=== PATIENT | female | born 2000 | race African-American/Black ===

== ENCOUNTER 2021-10-11 17:06 | Outpatient (CLI) | payer OTHER ==
[~2021-10-11 17:06] MED LIST: IBUPROFEN600 MG PO
== END 2021-10-11 19:20 | disposition home or self-care (01) ==
LOC: GENOP 17:06
DX: O99.891 Other specified diseases and conditions complicating pregnancy (principal); R25.2 Cramp and spasm; Z3A.25 25 weeks gestation of pregnancy
CPT/HCPCS: 59025; 81001; 96372; J0696

== ENCOUNTER 2022-01-21 16:30 | Inpatient (IN) | payer OTHER ==
[~2022-01-21] VITALS: Ht 167.6 cm; Wt 86.2 kg
[2022-01-21] MEDS ORDERED: PEPCID20 MG PO (17:31)
[2022-01-21 18:11] LABS: HEMOGLOBIN 10.1 gm/dl (12.3-15.3); RED BLOOD COUNT 4.39 M/UL (4.00-5.10); WHITE BLOOD COUNT 8.6 K/UL (4.5-11.0)
[2022-01-23 03:01] LABS: HEMOGLOBIN 9.4 gm/dl (12.3-15.3)
[2022-01-24] MEDS ORDERED: IBUPROFEN600 MG PO (08:39)
[2022-01-24] MEDS ORDERED: HYDROCODON-ACE1 EAC4 PO (08:39)
[2022-01-24] MEDS ORDERED: DOCUSATE SODIU100 MG PO (08:39)
== END 2022-01-24 14:15 | disposition home or self-care (01) | DRG 807 ==
LOC: GENOP 16:30 → OB 17:05
PROVIDERS: Obstetrics & Gynecology; ADMIT Obstetrics & Gynecology
PROC: 10E0XZZ Delivery of Products of Conception, External Approach (ICD-10-PCS; principal; 2022-01-22)
PROC: 10907ZC Drainage of Amniotic Fluid, Therapeutic from Products of Conception, Via Natural or Artificial Opening (ICD-10-PCS; 2022-01-22)
PROC: 3E033VJ Introduction of Other Hormone into Peripheral Vein, Percutaneous Approach (ICD-10-PCS; 2022-01-22)
PROC: 0HQ9XZZ Repair Perineum Skin, External Approach (ICD-10-PCS; 2022-01-22)
PROC: 4A1H7CZ Monitoring of Products of Conception, Cardiac Rate, Via Natural or Artificial Opening (ICD-10-PCS; 2022-01-22)
PROC: 10H073Z Insertion of Monitoring Electrode into Products of Conception, Via Natural or Artificial Opening (ICD-10-PCS; 2022-01-22)
PROC: 0UH97HZ Insertion of Contraceptive Device into Uterus, Via Natural or Artificial Opening (ICD-10-PCS; 2022-01-22)
DX: O70.0 First degree perineal laceration during delivery (principal); Z37.0 Single live birth; Z3A.39 39 weeks gestation of pregnancy; Z20.822 Contact with and (suspected) exposure to COVID-19; Z28.310 Unvaccinated for COVID-19
CPT/HCPCS: 81001; 82800; 85014; 85018; 85025; J0595; J2590; J7120; U0002

== ENCOUNTER 2022-03-05 21:18 | Emergency (ER) | payer OTHER ==
[~2022-03-05 21:18] MED LIST changes: +DOCUSATE SODIU100 MG PO; +HYDROCODON-ACE1 EAC4 PO; +PEPCID20 MG PO
== END 2022-03-06 00:55 | disposition home or self-care (01) ==
LOC: ER1 21:18
DX: R50.9 Fever, unspecified (principal); Z20.822 Contact with and (suspected) exposure to COVID-19
CPT/HCPCS: 87081; 87880; 99283; U0003